=== PATIENT | male | born 1955 | race Caucasian/White ===

== ENCOUNTER 2016-07-02 06:42 | Day surgery (SDC) | payer BC, OTHER ==
[2016-07-02] MEDS ORDERED: Bupivacaine 0.5% 50 ML MDV ONE (06:43)
[2016-07-02] MEDS ORDERED: Lidocaine 1% with EPINEPHrine 1:100,000 50 ML MDV ONE (06:43)
[2016-07-02] MEDS ORDERED: Bacitracin Oint 1 GM U/D Packet ONE (06:56)
[2016-07-02] MEDS ORDERED: Dextrose 5%-Lactated Ringers 1,000 ML IV SCH (07:15)
[2016-07-02] MEDS ORDERED: ceFAZolin 2 GM in Premix Bag 1 BAG IV ONE (08:00)
[2016-07-02] MEDS ORDERED: Midazolam 1 MG/ML 2 ML SDV ONE (08:18)
[2016-07-02] MEDS ORDERED: Propofol 200 MG/20 ML SDV ONE (08:18)
[2016-07-02] MEDS ORDERED: fentaNYL 100 MCG/2 ML SDV ONE (08:18)
[2016-07-02] MEDS ORDERED: Lactated Ringers 1,000 ML ONE (08:43)
[2016-07-02 10:22] VITALS: BP 128/73
--- NOTE | 2016-07-08 11:28 | OR ---
DATE OF PROCEDURE: 07/02/2016 PREOPERATIVE DIAGNOSES: 1. Atypical skin lesion involving dorsum of the right forearm. 2. A scaly area, consistent with actinic keratosis at the tip of the left ear. POSTOPERATIVE DIAGNOSES: 1. 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 2. A scaly area, tip of left ear, consistent with actinic keratosis. OPERATIVE PROCEDURE: 1. Excision of squamous cell carcinoma of the right forearm with layered closure (80442, [id number]). 2. Cryotherapy, to area of probable actinic keratosis, tip of left external ear (24265). ANESTHESIA: Local plus IV sedation. INDICATIONS FOR PROCEDURE: This is a 61-year-old male presenting with a rapidly enlarging lesion on the dorsum of the right forearm. The patient is presently immunosuppressed, status post a previous bone marrow transplant for recurrent leukemia. Additionally, he has a scaly area on the tip of the external ear on the left side, consistent with a probable area of actinic keratosis. Plan is to proceed with excision of the lesion on the dorsum of the right forearm, along with cryotherapy, liquid nitrogen treatment to the lesion on the tip of the left ear. Potential risks including bleeding, infection, recurrence of problems were reviewed, and the patient wishes to proceed. DETAILS OF PROCEDURE: The patient was taken to the operating room and placed in supine position. After IV sedation was administered, the area on the left ear was initially prepped and draped. The area had been marked preoperatively, and that area was then treated with liquid nitrogen, and at that point, that phase of the procedure then concluded. The right forearm was then prepped and draped and anesthetized with 1% lidocaine. The lesion measured 1.6 cm and the ultimate incision was 5.9 cm. A transversely oriented elliptical incision was made and carried down through the skin and subcutaneous tissue. A margin of normal-appearing skin was maintained around it, and the lesion was removed intact, and the margins were labeled for pathologic orientation. Frozen section was consistent with squamous cell carcinoma with clear margins. The deeper soft tissue were then reapproximated with 5-0 Vicryl stitch and the skin with 5-0 Prolene stitch. Dressing was applied. The patient was taken to the recovery room in satisfactory condition. Triston Gong MD /[id number]
== END 2016-07-02 10:34 | disposition home or self-care (01) ==
LOC: JP.SDS 06:42
PROVIDERS: ATTEND Surgery
PROC: 0JQG0ZZ Repair Right Lower Arm Subcutaneous Tissue and Fascia, Open Approach (ICD-10-PCS; principal; 2016-07-02)
PROC: 0HBDXZX Excision of Right Lower Arm Skin, External Approach, Diagnostic (ICD-10-PCS; 2016-07-02)
DX: C44.622 Squamous cell carcinoma of skin of right upper limb, including shoulder (principal); L57.0 Actinic keratosis; Z85.6 Personal history of leukemia
CPT/HCPCS: 11602; 12032; 17000; J0690; J2250; J2704; J3010; J7042; J7120; 88305; 88331